=== PATIENT | male | born 1970 | race Caucasian/White ===

== ENCOUNTER 2021-05-09 22:36 | Emergency (ER) | payer OTHER, MEDICAID ==
[~2021-05-09] VITALS: Ht 185.4 cm; Wt 72.6 kg
[~2021-05-09 22:36] MED LIST: ALPR2TAB2 PO; ASPI81CH45; BUPRTAB3 PO; LEVEMIR SC; QUET100T38 PO
[2021-05-10 03:15] VITALS: BP 170/76
[2021-05-10] MEDS ORDERED: SODIUM CHLORIDE 0.9% 1,000 ML IV ONE (06:00)
[2021-05-10 07:08] LABS: Basophils # (auto) 0 10 ^3/uL (0-0.2); Basophils % (auto) 0.7 % (0.0-2.0); Eosinophils # (auto) 0.1 10 ^3/uL (0-0.8); Hematocrit 39.6 % (41.0-53.0); Hemoglobin 13.1 g/dL (13.5-17.5); Lymphocytes # (auto) 2.2 10 ^3/uL (0.4-5.4); Lymphocytes % (auto) 30.4 % (10.0-50.0); Mean Corpuscular Hemoglobin 28.9 pg (28.0-32.0); Mean Corpuscular Volume 87.5 fL (80.0-100.0); Monocytes # (auto) 0.8 10 ^3/uL (0-1.3); Monocytes % (auto) 10.9 % (0.0-12.0); Nucleated Red Blood Cells % 0.2 %; Red Blood Cells 4.52 10^6/uL (4.5-5.90); Red Cell Distribution Width 13.3 % (11.8-14.3); White Blood Cell 7.1 10^3/uL (4.4-10.8)
[2021-05-10 07:20] LABS: Albumin 3.8 g/dL (3.4-5.0); BUN/Creatinine Ratio 26.8; Calcium 8.8 mg/dL (8.5-10.1); Magnesium 2.1 mg/dL (1.6-2.6); Potassium 4.4 mmol/L (3.5-5.1)
[2021-05-10 07:23] LABS: Bilirubin, Total 0.4 mg/dL (0.2-1.0); Total Protein 7.1 g/dL (6.4-8.2)
== END 2021-05-10 10:07 | disposition left against medical advice (07) ==
LOC: EDBD 22:36 → ER 22:37
DX: E11.65 Type 2 diabetes mellitus with hyperglycemia (principal); F15.10 Other stimulant abuse, uncomplicated; F19.10 Other psychoactive substance abuse, uncomplicated; F17.210 Nicotine dependence, cigarettes, uncomplicated; F12.10 Cannabis abuse, uncomplicated; F14.10 Cocaine abuse, uncomplicated; I10 Essential (primary) hypertension
CPT/HCPCS: 36415; 80053; 80320; 82010; 83605; 83735; 85025; 96360; 99283; J7030

== ENCOUNTER 2021-05-13 19:56 | Emergency (ER) | payer OTHER, MEDICAID ==
[~2021-05-13] VITALS: Ht 185.4 cm; Wt 74.8 kg
[2021-05-13] MEDS ORDERED: SODIUM CHLORIDE 0.9% 1,000 ML IV ONE ×2 (20:45→23:15)
[2021-05-13 21:30] LABS: Basophils # (auto) 0 10 ^3/uL (0-0.2); Basophils % (auto) 0.4 % (0.0-2.0); Eosinophils # (auto) 0.1 10 ^3/uL (0-0.8); Eosinophils % (auto) 0.6 % (0.0-7.0); Hematocrit 37.6 % (41.0-53.0); Hemoglobin 12.5 g/dL (13.5-17.5); Lymphocytes # (auto) 1.5 10 ^3/uL (0.4-5.4); Lymphocytes % (auto) 15.6 % (10.0-50.0); Mean Corpuscular Hemoglobin 28.7 pg (28.0-32.0); Mean Corpuscular Hgb Conc. 33.2 g/dL (32.0-36.0); Mean Corpuscular Volume 86.5 fL (80.0-100.0); Monocytes # (auto) 0.7 10 ^3/uL (0-1.3); Monocytes % (auto) 7.7 % (0.0-12.0); Neutrophils # (auto) 7.2 10 ^3/uL (1.6-8.6); Neutrophils % (auto) 75.7 % (37.0-80.0); Red Blood Cells 4.35 10^6/uL (4.5-5.90); Red Cell Distribution Width 13.3 % (11.8-14.3); White Blood Cell 9.5 10^3/uL (4.4-10.8)
[2021-05-13 21:46] LABS: Albumin 3.5 g/dL (3.4-5.0); Calcium 8.2 mg/dL (8.5-10.1); Magnesium 2.8 mg/dL (1.6-2.6); Potassium 4.3 mmol/L (3.5-5.1)
[2021-05-13 21:50] LABS: BUN/Creatinine Ratio 17.4; Bilirubin, Total 0.2 mg/dL (0.2-1.0); Phosphorus 3.3 mg/dL (2.5-4.90); Total Protein 7.1 g/dL (6.4-8.2)
[2021-05-13] MEDS ORDERED: InsuLIN REG 1unit/0.01ml Soln (100units/ml) IV ONE (22:15)
[2021-05-14] MEDS ORDERED: DEXTROSE 50% SYRINGE 50 ML IV ONE (00:58)
[2021-05-14] MEDS ORDERED: DEXTROSE (50%) 50ML SYRG IV ONE (01:15)
[2021-05-14 02:14] VITALS: BP 109/62
[2021-05-14] MEDS ORDERED: INSU1INJ19 SC (03:02)
== END 2021-05-14 03:20 | disposition home or self-care (01) ==
LOC: ER 19:56
DX: E11.65 Type 2 diabetes mellitus with hyperglycemia (principal); R44.3 Hallucinations, unspecified; I10 Essential (primary) hypertension; F17.210 Nicotine dependence, cigarettes, uncomplicated; F12.10 Cannabis abuse, uncomplicated; F15.10 Other stimulant abuse, uncomplicated; F14.10 Cocaine abuse, uncomplicated
CPT/HCPCS: 36415; 80053; 82010; 82962; 83605; 83735; 84100; 85025; 96361; 96374; 96375; 99285; J7030; J7042

== ENCOUNTER 2021-05-15 11:46 | Emergency (ER) | payer OTHER, MEDICAID ==
[~2021-05-15] VITALS: Ht 185.4 cm; Wt 80.3 kg
[~2021-05-15 11:46] MED LIST changes: +INSU1INJ19 SC
[2021-05-15 12:42] LABS: Urine Bacteria NONE SEEN /hpf (None Seen); Urine Blood TRACE /uL (Negative); Urine Specific Gravity 1.024 (1.001-1.035); Urine WBC 263 /hpf (0 - 3); Urine WBC Clumps PRESENT /hpf (None Seen)
[2021-05-15 13:15] LABS: Alcohol, Urine < 3.0 mg/dL (0-10); Amphetamine Screen, Urine POSITIVE (NEGATIVE); Barbiturate Scree,Urine NEGATIVE (NEGATIVE); Benzodiazephine Screen, Urine NEGATIVE (NEGATIVE); Cannabinoid Screen, Urine NEGATIVE (NEGATIVE); Cocaine Screen, Urine NEGATIVE (NEGATIVE); Phencyclidine Screen, Urine NEGATIVE (NEGATIVE)
[2021-05-15 13:21] LABS: Opiate Scree,Urine NEGATIVE (NEGATIVE)
[2021-05-15 21:32] LABS: Basophils # (auto) 0 10 ^3/uL (0-0.2); Basophils % (auto) 0.4 % (0.0-2.0); Eosinophils # (auto) 0.1 10 ^3/uL (0-0.8); Eosinophils % (auto) 1.6 % (0.0-7.0); Hematocrit 40.7 % (41.0-53.0); Hemoglobin 13.4 g/dL (13.5-17.5); Lymphocytes # (auto) 1.2 10 ^3/uL (0.4-5.4); Lymphocytes % (auto) 18.7 % (10.0-50.0); Mean Corpuscular Hemoglobin 29.5 pg (28.0-32.0); Mean Corpuscular Volume 89.3 fL (80.0-100.0); Monocytes # (auto) 0.5 10 ^3/uL (0-1.3); Monocytes % (auto) 8.5 % (0.0-12.0); Neutrophils # (auto) 4.6 10 ^3/uL (1.6-8.6); Neutrophils % (auto) 70.8 % (37.0-80.0); Nucleated Red Blood Cells % 0.1 %; Red Blood Cells 4.56 10^6/uL (4.5-5.90); Red Cell Distribution Width 13.5 % (11.8-14.3); White Blood Cell 6.5 10^3/uL (4.4-10.8)
[2021-05-15 21:54] LABS: Calcium 9.1 mg/dL (8.5-10.1); Potassium 5.1 mmol/L (3.5-5.1)
[2021-05-15 22:00] LABS: BUN/Creatinine Ratio 28.6
[2021-05-16] MEDS ORDERED: InsuLIN REG 1unit/0.01ml Soln (100units/ml) IV ONE ×2 (01:00→05:45)
[2021-05-16] MEDS ORDERED: SODIUM CHLORIDE 0.9% 1,000 ML IV ONE ×2 (01:00→02:45)
[2021-05-16 01:54] LABS: Magnesium 2.1 mg/dL (1.6-2.6); Phosphorus 3.5 mg/dL (2.5-4.90)
[2021-05-16] MEDS ORDERED: cefTRIAXone 1GM/50ML D5W 50 ML IV ONE (02:45)
[2021-05-16] MEDS ORDERED: INSULIN LANTUS (GLARGINE) 1 /0.01ml (100units/ml) SC ONE (05:00)
[2021-05-16] MEDS ORDERED: InsuLIN R (HUMAN) 100 UNITS in SODIUM CHL 0.9% 99 ML IV SCH ×2 (05:00→05:45)
[2021-05-16] MEDS ORDERED: DEXTROSE (50%) 50ML SYRG IV PRN ×3 (05:00→05:45)
[2021-05-16] MEDS ORDERED: ACETAMINOPHEN 325 MG TAB PO PRN (05:15)
[2021-05-16] MEDS ORDERED: ONDANSETRON HCL 4 MG/2 ML VIAL IV PRN (05:15)
[2021-05-16] MEDS ORDERED: HYDROcodone-ACET 5/325MG TAB PO PRN (05:15)
[2021-05-16] MEDS ORDERED: SODIUM CHLORIDE 0.9% 1,000 ML IV SCH (05:15)
[2021-05-16] MEDS ORDERED: DOCUSATE SOD 100 MG CAP PO PRN (05:15)
[2021-05-16] MEDS: ACCU-CHEK COMFORT CURVE STRIP VI SCH ×6 (05:56→11:39)
[2021-05-16] MEDS ORDERED: ACCU-CHEK COMFORT CURVE STRIP VI SCH (06:00)
[2021-05-16] MEDS ORDERED: INSULIN LANTUS (GLARGINE) 1 /0.01ml (100units/ml) SC SCH (07:00)
[2021-05-16] MEDS ORDERED: InsuLIN REG 1unit/0.01ml Soln (100units/ml) SC SCH (08:00)
[2021-05-16 08:07] LABS: Basophils # (auto) 0.1 10 ^3/uL (0-0.2); Basophils % (auto) 1.1 % (0.0-2.0); Eosinophils # (auto) 0.2 10 ^3/uL (0-0.8); Eosinophils % (auto) 3.4 % (0.0-7.0); Hematocrit 38.6 % (41.0-53.0); Hemoglobin 12.9 g/dL (13.5-17.5); Lymphocytes # (auto) 1.5 10 ^3/uL (0.4-5.4); Lymphocytes % (auto) 27.3 % (10.0-50.0); Mean Corpuscular Hemoglobin 29.3 pg (28.0-32.0); Mean Corpuscular Hgb Conc. 33.5 g/dL (32.0-36.0); Mean Corpuscular Volume 87.4 fL (80.0-100.0); Monocytes # (auto) 0.5 10 ^3/uL (0-1.3); Monocytes % (auto) 8.5 % (0.0-12.0); Neutrophils # (auto) 3.2 10 ^3/uL (1.6-8.6); Neutrophils % (auto) 59.7 % (37.0-80.0); Red Blood Cells 4.42 10^6/uL (4.5-5.90); Red Cell Distribution Width 12.8 % (11.8-14.3); White Blood Cell 5.4 10^3/uL (4.4-10.8)
[2021-05-16 08:21] LABS: Albumin 3.1 g/dL (3.4-5.0); Calcium 8.3 mg/dL (8.5-10.1); Potassium 3.9 mmol/L (3.5-5.1)
[2021-05-16 08:26] LABS: BUN/Creatinine Ratio 28.9; Bilirubin, Total 0.3 mg/dL (0.2-1.0); Total Protein 6.8 g/dL (6.4-8.2)
[2021-05-16] MEDS ORDERED: FAMOTIDINE (10MG/ML) 2ML VL IV SCH (10:00)
[2021-05-16] MEDS ORDERED: ENOXAPARIN SOD 40 MG/0.4 ML SYRINGE SC SCH (10:00)
[2021-05-16 11:36] VITALS: BP 134/79
[2021-05-16] MEDS ORDERED: cefTRIAXone 1GM/50ML D5W 50 ML IV SCH (21:00)
[2021-05-17] MEDS ORDERED: INSULIN LANTUS (GLARGINE) 1 /0.01ml (100units/ml) SC SCH (10:00)
== END 2021-05-16 11:54 | disposition short-term general hospital (02) ==
LOC: ER 11:46
DX: E11.65 Type 2 diabetes mellitus with hyperglycemia (principal); I73.89 Other specified peripheral vascular diseases; N39.0 Urinary tract infection, site not specified; F17.210 Nicotine dependence, cigarettes, uncomplicated; F12.10 Cannabis abuse, uncomplicated; F15.10 Other stimulant abuse, uncomplicated; F14.10 Cocaine abuse, uncomplicated; Z59.00 Homelessness unspecified
CPT/HCPCS: 36415; 80048; 80053; 80307; 81001; 82010; 82962; 83036; 83605; 83735; 84100; 85025; 87086; 87426; 96361; 96365; 96372; 96375; 96376; 99285; J0696; J1650; J1815; J3490; J7030

== ENCOUNTER 2021-06-25 16:24 | Emergency (ER) | payer MEDICAID, OTHER ==
[~2021-06-25] VITALS: Ht 182.9 cm; Wt 81.6 kg
[2021-06-25] MEDS ORDERED: SODIUM CHLORIDE 0.9% 1,000 ML IV ONE (16:45)
[2021-06-25] MEDS ORDERED: PERCOT PO (17:16)
[2021-06-25] MEDS ORDERED: DEXTROSE 10% 1,000 ML IV ONE (18:01)
[2021-06-25] MEDS ORDERED: DEXTROSE 10% 1,000 ML IV SCH (18:15)
[2021-06-25 18:45] LABS: Basophils # (auto) 0 10 ^3/uL (0-0.2); Basophils % (auto) 0.4 % (0.0-2.0); Eosinophils # (auto) 0.1 10 ^3/uL (0-0.8); Eosinophils % (auto) 0.4 % (0.0-7.0); Hematocrit 40.9 % (41.0-53.0); Hemoglobin 13.7 g/dL (13.5-17.5); Lymphocytes # (auto) 1.3 10 ^3/uL (0.4-5.4); Lymphocytes % (auto) 10.5 % (10.0-50.0); Mean Corpuscular Hemoglobin 28.7 pg (28.0-32.0); Mean Corpuscular Hgb Conc. 33.5 g/dL (32.0-36.0); Mean Corpuscular Volume 85.8 fL (80.0-100.0); Monocytes # (auto) 1.4 10 ^3/uL (0-1.3); Monocytes % (auto) 11.8 % (0.0-12.0); Neutrophils # (auto) 9.4 10 ^3/uL (1.6-8.6); Neutrophils % (auto) 76.9 % (37.0-80.0); Nucleated Red Blood Cells % 0.1 %; Red Blood Cells 4.77 10^6/uL (4.5-5.90); Red Cell Distribution Width 14.3 % (11.8-14.3); White Blood Cell 12.2 10^3/uL (4.4-10.8)
[2021-06-25 19:01] LABS: Albumin 3.6 g/dL (3.4-5.0); Calcium 9.1 mg/dL (8.5-10.1); Potassium 4.2 mmol/L (3.5-5.1)
[2021-06-25 19:11] LABS: BUN/Creatinine Ratio 33.7; Bilirubin, Total 0.4 mg/dL (0.2-1.0); Total Protein 7.7 g/dL (6.4-8.2)
[2021-06-25 21:33] LABS: Urine Bacteria FEW /hpf (None Seen); Urine Blood Negative /uL (Negative); Urine Hyaline Cast FEW /lpf (0 - 2); Urine Specific Gravity 1.023 (1.001-1.035); Urine WBC 2 /hpf (0 - 3)
[2021-06-25 22:17] LABS: Alcohol, Urine < 3.0 mg/dL (0-10); Amphetamine Screen, Urine POSITIVE (NEGATIVE); Barbiturate Scree,Urine NEGATIVE (NEGATIVE); Benzodiazephine Screen, Urine NEGATIVE (NEGATIVE); Cannabinoid Screen, Urine NEGATIVE (NEGATIVE); Cocaine Screen, Urine NEGATIVE (NEGATIVE); Opiate Scree,Urine NEGATIVE (NEGATIVE); Phencyclidine Screen, Urine NEGATIVE (NEGATIVE)
[2021-06-26] MEDS ORDERED: ASPirin 325 MG TAB PO ONE (03:15)
[2021-06-26 04:22] VITALS: BP 130/75
== END 2021-06-26 08:45 | disposition short-term general hospital (02) ==
LOC: ER 16:24 → EDBD 16:24 → ER 06-26 08:45
DX: G93.41 Metabolic encephalopathy (principal); F25.9 Schizoaffective disorder, unspecified; E11.649 Type 2 diabetes mellitus with hypoglycemia without coma; I10 Essential (primary) hypertension; F17.210 Nicotine dependence, cigarettes, uncomplicated; R41.82 Altered mental status, unspecified; F12.10 Cannabis abuse, uncomplicated; F15.10 Other stimulant abuse, uncomplicated; F14.10 Cocaine abuse, uncomplicated; Z20.822 Contact with and (suspected) exposure to COVID-19
CPT/HCPCS: 36415; 70450; 71045; 80053; 80307; 81001; 82962; 83036; 84484; 85025; 87426; 93005; 96360; 96361

== ENCOUNTER 2021-07-05 15:53 | Inpatient (IN) | payer OTHER, MEDICAID ==
[~2021-07-05] VITALS: Ht 182.9 cm; Wt 80.7 kg
[2021-07-05] MEDS ORDERED: DEXTROSE 50% SYRINGE 50 ML IV ONE ×3 (16:15→20:25)
[2021-07-05] MEDS ORDERED: DEXTROSE (50%) 50ML SYRG IV ONE ×3 (17:00→20:45)
[2021-07-05 17:17] LABS: Basophils # (auto) 0 10 ^3/uL (0-0.2); Basophils % (auto) 0.2 % (0.0-2.0); Eosinophils # (auto) 0.1 10 ^3/uL (0-0.8); Eosinophils % (auto) 0.8 % (0.0-7.0); Hemoglobin 11.4 g/dL (13.5-17.5); Lymphocytes # (auto) 0.7 10 ^3/uL (0.4-5.4); Lymphocytes % (auto) 8.3 % (10.0-50.0); Mean Corpuscular Hemoglobin 28.6 pg (28.0-32.0); Mean Corpuscular Hgb Conc. 33.6 g/dL (32.0-36.0); Mean Corpuscular Volume 85.2 fL (80.0-100.0); Monocytes # (auto) 0.6 10 ^3/uL (0-1.3); Monocytes % (auto) 6.9 % (0.0-12.0); Neutrophils # (auto) 7.4 10 ^3/uL (1.6-8.6); Neutrophils % (auto) 83.8 % (37.0-80.0); Nucleated Red Blood Cells % 0.2 %; Red Blood Cells 3.99 10^6/uL (4.5-5.90); Red Cell Distribution Width 13.8 % (11.8-14.3); White Blood Cell 8.8 10^3/uL (4.4-10.8)
[2021-07-05 17:36] LABS: Acetaminophen < 2.0 ug/mL (10-30); Albumin 2.6 g/dL (3.4-5.0); BUN/Creatinine Ratio 31.3; Calcium 8.2 mg/dL (8.5-10.1); Potassium 3.1 mmol/L (3.5-5.1); Salicylate < 1.7 mg/dL (2.8-20.0)
[2021-07-05 17:39] LABS: Bilirubin, Total 0.2 mg/dL (0.2-1.0); Total Protein 6.3 g/dL (6.4-8.2)
[2021-07-05] MEDS ORDERED: D5W/SOD CHL 0.45%/KCL 20MEQ 1,000 ML IV ONE ×2 (18:45→19:00)
[2021-07-05] MEDS ORDERED: cefTRIAXone 1GM/50ML D5W 50 ML IV ONE (20:30)
[2021-07-05] MEDS ORDERED: DEXTROSE 10% 1,000 ML IV ONE (21:15)
[2021-07-05] MEDS ORDERED: DEXTROSE (50%) 50ML SYRG IV PRN (21:30)
[2021-07-05] MEDS ORDERED: AZITHROMYCIN 500MG/ 250ML 250 ML IV ONE (21:30)
[2021-07-05] MEDS ORDERED: ONDANSETRON HCL 4 MG/2 ML VIAL IV PRN (21:30)
[2021-07-05] MEDS ORDERED: NITROGLYCERIN 0.4 MG SL TAB SL PRN (21:30)
[2021-07-05] MEDS ORDERED: MORPHINE SULFATE INJECTION 2 MG/ML SYRG IV PRN (21:30)
[2021-07-05] MEDS: GABAPENTIN 300 MG CAP PO SCH (22:00)
[2021-07-05] MEDS: risperiDONE 1 MG TAB PO SCH (22:00)
[2021-07-05] MEDS: DEXTROSE 10% 1,000 ML IV SCH (22:01)
[2021-07-06] MEDS: InsuLIN REG 1unit/0.01ml Soln (100units/ml) SC SCH ×6 (04:00→20:25)
[2021-07-06] MEDS: ACCU-CHEK COMFORT CURVE STRIP VI SCH ×6 (04:24→20:24)
[2021-07-06] MEDS: GABAPENTIN 300 MG CAP PO SCH ×3 (06:00→22:40)
[2021-07-06] MEDS: buPROPion HCL 75 MG TAB PO SCH ×2 (08:00→19:00)
[2021-07-06] MEDS: AZITHROMYCIN 500MG/ 250ML 250 ML IV SCH (10:14)
[2021-07-06] MEDS: DEXTROSE 10% 1,000 ML IV SCH (10:39)
[2021-07-06 12:03] LABS: BUN/Creatinine Ratio 16.4; Calcium 8.4 mg/dL (8.5-10.1); Potassium 3.8 mmol/L (3.5-5.1)
[2021-07-06 12:08] LABS: Basophils # (auto) 0 10 ^3/uL (0-0.2); Basophils % (auto) 0.1 % (0.0-2.0); Eosinophils # (auto) 0.1 10 ^3/uL (0-0.8); Hematocrit 33.5 % (41.0-53.0); Hemoglobin 11.1 g/dL (13.5-17.5); Lymphocytes # (auto) 1.1 10 ^3/uL (0.4-5.4); Lymphocytes % (auto) 11.6 % (10.0-50.0); Mean Corpuscular Hgb Conc. 33.1 g/dL (32.0-36.0); Mean Corpuscular Volume 84.6 fL (80.0-100.0); Monocytes # (auto) 0.6 10 ^3/uL (0-1.3); Monocytes % (auto) 6.4 % (0.0-12.0); Neutrophils % (auto) 80.9 % (37.0-80.0); Red Blood Cells 3.96 10^6/uL (4.5-5.90); Red Cell Distribution Width 13.5 % (11.8-14.3); White Blood Cell 9.8 10^3/uL (4.4-10.8)
[2021-07-06 13:00] VITALS: BP 114/64
[2021-07-06 14:45] LABS: Alcohol, Urine < 3.0 mg/dL (0-10); Amphetamine Screen, Urine POSITIVE (NEGATIVE); Barbiturate Scree,Urine NEGATIVE (NEGATIVE); Benzodiazephine Screen, Urine NEGATIVE (NEGATIVE); Cannabinoid Screen, Urine NEGATIVE (NEGATIVE); Cocaine Screen, Urine NEGATIVE (NEGATIVE)
[2021-07-06 14:53] LABS: Opiate Scree,Urine NEGATIVE (NEGATIVE); Phencyclidine Screen, Urine NEGATIVE (NEGATIVE)
[2021-07-06 15:00] LABS: Urine Bacteria NONE SEEN /hpf (None Seen); Urine Blood Negative /uL (Negative); Urine Hyaline Cast FEW /lpf (0 - 2); Urine Specific Gravity 1.016 (1.001-1.035); Urine WBC 1 /hpf (0 - 3)
[2021-07-06] MEDS ORDERED: ATORVASTATIN 20 MG TAB PO ONE (15:30)
[2021-07-06] MEDS: ACETAMINOPHEN 325 MG TAB PO PRN (17:22)
[2021-07-06 20:00] VITALS: BP 123/64
[2021-07-06] MEDS: risperiDONE 1 MG TAB PO SCH (22:40)
[2021-07-07] MEDS: InsuLIN REG 1unit/0.01ml Soln (100units/ml) SC SCH ×5 (04:00→22:00)
[2021-07-07] MEDS: ACCU-CHEK COMFORT CURVE STRIP VI SCH ×5 (05:15→22:00)
[2021-07-07] MEDS: GABAPENTIN 300 MG CAP PO SCH ×3 (06:01→21:40)
[2021-07-07] MEDS: buPROPion HCL 75 MG TAB PO SCH ×2 (07:00→19:00)
[2021-07-07 08:00] VITALS: BP 145/94
[2021-07-07 09:00] VITALS: BP 145/94
[2021-07-07] MEDS ORDERED: DEXTROSE (50%) 50ML SYRG IV PRN (09:30)
[2021-07-07] MEDS: ASPirin-EC 81 mg tab PO SCH (09:50)
[2021-07-07] MEDS: cefTRIAXone 1GM/50ML D5W 50 ML IV SCH (09:52)
[2021-07-07 12:20] LABS: Cholesterol 108 mg/dL (< 200); Sodium 131 mmol/L (136-145)
[2021-07-07 12:23] LABS: HDL Cholesterol 37 mg/dL (40-59); LDL Cholesterol 52 mg/dL (< 100); Triglycerides 100 mg/dL (< 150)
[2021-07-07 13:00] VITALS: BP 158/102
[2021-07-07] MEDS ORDERED: INSULIN LANTUS (GLARGINE) 1 /0.01ml (100units/ml) SC ONE (13:45)
[2021-07-07] MEDS: AZITHROMYCIN 500MG/ 250ML 250 ML IV SCH (13:57)
[2021-07-07] MEDS: ALPRAZolam 0.5 MG TAB PO SCH ×2 (15:05→21:43)
[2021-07-07] MEDS ORDERED: LABETALOL HCL 5 MG/ML 4ML SYRINGE IV PRN (16:00)
[2021-07-07 16:56] VITALS: BP 147/90
[2021-07-07 20:00] VITALS: BP 147/79
[2021-07-07] MEDS: risperiDONE 1 MG TAB PO SCH (21:40)
[2021-07-07 22:00] VITALS: BP 147/79
[2021-07-08 05:00] VITALS: BP 111/65
[2021-07-08] MEDS: GABAPENTIN 300 MG CAP PO SCH ×3 (06:00→22:00)
[2021-07-08] MEDS: ALPRAZolam 0.5 MG TAB PO SCH ×3 (06:00→22:00)
[2021-07-08] MEDS: InsuLIN REG 1unit/0.01ml Soln (100units/ml) SC SCH ×4 (06:54→22:00)
[2021-07-08] MEDS: ACCU-CHEK COMFORT CURVE STRIP VI SCH ×4 (06:58→22:00)
[2021-07-08] MEDS: buPROPion HCL 75 MG TAB PO SCH ×2 (07:28→18:01)
[2021-07-08 08:00] VITALS: BP 120/73
[2021-07-08 08:43] VITALS: BP 120/73
[2021-07-08] MEDS ORDERED: INSULIN LANTUS (GLARGINE) 1 /0.01ml (100units/ml) SC SCH (10:00)
[2021-07-08] MEDS: AZITHROMYCIN 500MG/ 250ML 250 ML IV SCH (11:01)
[2021-07-08] MEDS: ASPirin-EC 81 mg tab PO SCH (11:02)
[2021-07-08] MEDS: cefTRIAXone 1GM/50ML D5W 50 ML IV SCH (12:03)
[2021-07-08 13:00] VITALS: BP 155/87
[2021-07-08 17:00] VITALS: BP 137/73
[2021-07-08 20:00] VITALS: BP 133/69
[2021-07-08] MEDS: risperiDONE 1 MG TAB PO SCH (22:00)
[2021-07-09] MEDS: GABAPENTIN 300 MG CAP PO SCH ×3 (06:15→22:00)
[2021-07-09] MEDS: ALPRAZolam 0.5 MG TAB PO SCH ×3 (06:15→22:00)
[2021-07-09] MEDS: InsuLIN REG 1unit/0.01ml Soln (100units/ml) SC SCH ×4 (06:21→22:00)
[2021-07-09] MEDS: ACCU-CHEK COMFORT CURVE STRIP VI SCH ×4 (06:22→23:29)
[2021-07-09] MEDS: buPROPion HCL 75 MG TAB PO SCH ×2 (06:22→18:32)
[2021-07-09 06:53] LABS: Potassium 3.7 mmol/L (3.5-5.1)
[2021-07-09 06:55] LABS: BUN/Creatinine Ratio 18.5
[2021-07-09 09:00] VITALS: BP 108/61
[2021-07-09] MEDS: cefTRIAXone 1GM/50ML D5W 50 ML IV SCH (10:20)
[2021-07-09] MEDS: ASPirin-EC 81 mg tab PO SCH (10:21)
[2021-07-09] MEDS: INSULIN LANTUS (GLARGINE) 1 /0.01ml (100units/ml) SC SCH (10:26)
[2021-07-09] MEDS: AZITHROMYCIN 500MG/ 250ML 250 ML IV SCH (10:26)
[2021-07-09 13:00] VITALS: BP 113/67
[2021-07-09] MEDS: ACETAMINOPHEN 325 MG TAB PO PRN (15:55)
[2021-07-09 17:00] VITALS: BP 154/93
[2021-07-09] MEDS ORDERED: InsuLIN REG 1unit/0.01ml Soln (100units/ml) SC ONE (19:15)
[2021-07-09 20:00] VITALS: BP 120/86
[2021-07-09 22:00] VITALS: BP 163/87
[2021-07-09] MEDS ORDERED: INSULIN LANTUS (GLARGINE) 1 /0.01ml (100units/ml) SC SCH (22:00)
[2021-07-09] MEDS: risperiDONE 1 MG TAB PO SCH (22:00)
[2021-07-10 05:00] VITALS: BP 105/65
[2021-07-10] MEDS: GABAPENTIN 300 MG CAP PO SCH ×3 (06:00→21:30)
[2021-07-10] MEDS: ALPRAZolam 0.5 MG TAB PO SCH ×3 (06:00→21:30)
[2021-07-10] MEDS: buPROPion HCL 75 MG TAB PO SCH ×2 (06:38→19:22)
[2021-07-10] MEDS: ACCU-CHEK COMFORT CURVE STRIP VI SCH ×4 (06:39→21:30)
[2021-07-10] MEDS: InsuLIN REG 1unit/0.01ml Soln (100units/ml) SC SCH ×4 (06:44→21:24)
[2021-07-10 09:00] VITALS: BP 101/58
[2021-07-10] MEDS: ASPirin-EC 81 mg tab PO SCH (09:43)
[2021-07-10] MEDS: ACETAMINOPHEN 325 MG TAB PO PRN (09:44)
[2021-07-10] MEDS: AZITHROMYCIN 500MG/ 250ML 250 ML IV SCH (09:44)
[2021-07-10] MEDS: cefTRIAXone 1GM/50ML D5W 50 ML IV SCH (09:44)
[2021-07-10] MEDS: INSULIN LANTUS (GLARGINE) 1 /0.01ml (100units/ml) SC SCH ×2 (10:03→21:25)
[2021-07-10 13:00] VITALS: BP 142/90
[2021-07-10 16:49] VITALS: BP 135/110
[2021-07-10] MEDS ORDERED: InsuLIN REG 1unit/0.01ml Soln (100units/ml) SC ONE (18:00)
[2021-07-10] MEDS ORDERED: LORazepam 2MG/ML-1ML VIAL IV ONE (19:00)
[2021-07-10 20:15] LABS: Albumin 2.5 g/dL (3.4-5.0); Calcium 8.3 mg/dL (8.5-10.1); Potassium 4.2 mmol/L (3.5-5.1)
[2021-07-10 20:26] LABS: BUN/Creatinine Ratio 19.8; Bilirubin, Total 0.2 mg/dL (0.2-1.0); Total Protein 6.1 g/dL (6.4-8.2)
[2021-07-10] MEDS: risperiDONE 1 MG TAB PO SCH (21:30)
[2021-07-10 22:00] VITALS: BP 128/19
[2021-07-11 05:00] VITALS: BP 106/60
[2021-07-11] MEDS: ACCU-CHEK COMFORT CURVE STRIP VI SCH ×4 (05:10→21:27)
[2021-07-11] MEDS: GABAPENTIN 300 MG CAP PO SCH ×3 (06:00→21:24)
[2021-07-11] MEDS: ALPRAZolam 0.5 MG TAB PO SCH ×3 (06:00→21:24)
[2021-07-11] MEDS: buPROPion HCL 75 MG TAB PO SCH ×2 (06:49→18:23)
[2021-07-11] MEDS: InsuLIN REG 1unit/0.01ml Soln (100units/ml) SC SCH ×4 (06:50→21:25)
[2021-07-11] MEDS: cefTRIAXone 1GM/50ML D5W 50 ML IV SCH (09:16)
[2021-07-11] MEDS: ASPirin-EC 81 mg tab PO SCH (10:10)
[2021-07-11] MEDS: AZITHROMYCIN 500MG/ 250ML 250 ML IV SCH (10:10)
[2021-07-11] MEDS: INSULIN LANTUS (GLARGINE) 1 /0.01ml (100units/ml) SC SCH ×2 (10:11→21:26)
[2021-07-11 13:00] VITALS: BP 142/85
[2021-07-11 17:00] VITALS: BP_SYST 142; BP_SYST 149; BP_DIAS 85; BP_DIAS 88
[2021-07-11] MEDS: risperiDONE 1 MG TAB PO SCH (21:24)
[2021-07-11 22:00] VITALS: BP 150/88
[2021-07-12] MEDS ORDERED: HALOPERIDOL LACTATE 5 MG/ML INJ VIAL IM PRN (02:45)
[2021-07-12] MEDS: ALPRAZolam 0.5 MG TAB PO SCH (06:00)
[2021-07-12] MEDS: GABAPENTIN 300 MG CAP PO SCH (06:00)
[2021-07-12] MEDS: cefTRIAXone 1GM/50ML D5W 50 ML IV SCH ×2 (06:36→08:22)
[2021-07-12] MEDS: InsuLIN REG 1unit/0.01ml Soln (100units/ml) SC SCH ×2 (07:00→11:30)
[2021-07-12] MEDS: buPROPion HCL 75 MG TAB PO SCH (07:00)
[2021-07-12] MEDS: ACCU-CHEK COMFORT CURVE STRIP VI SCH ×2 (07:00→11:30)
[2021-07-12 08:00] VITALS: BP 125/64
[2021-07-12] MEDS: ASPirin-EC 81 mg tab PO SCH (08:23)
[2021-07-12] MEDS: AZITHROMYCIN 500MG/ 250ML 250 ML IV SCH (08:23)
[2021-07-12] MEDS: INSULIN LANTUS (GLARGINE) 1 /0.01ml (100units/ml) SC SCH (08:23)
[2021-07-12 09:00] VITALS: BP 143/80
[2021-07-12] MEDS: HYDROcodone-ACET 5/325MG TAB PO PRN ×2 (10:45→11:38)
[2021-07-12] MEDS ORDERED: LEVEMIR SC (12:43)
[2021-07-12] MEDS ORDERED: INSU100I49 SC (12:43)
[2021-07-12] MEDS ORDERED: AMIT1TAB35 PO (12:43)
[2021-07-12 13:00] VITALS: BP 139/94
== END 2021-07-12 14:15 | disposition left against medical advice (07) | DRG 91 ==
LOC: ER 15:53 → EDBD 15:53 → TELE 21:25 → TELE-CENTR 07-06 14:10 → CENTRAL 07-09 10:44
PROVIDERS: ADMIT Nurse Practitioner; ATTEND Family Medicine
DX: G92.8 Other toxic encephalopathy (principal); J18.9 Pneumonia, unspecified organism; J96.00 Acute respiratory failure, unspecified whether with hypoxia or hypercapnia; E43 Unspecified severe protein-calorie malnutrition; I21.A1 Myocardial infarction type 2; E87.1 Hypo-osmolality and hyponatremia; E86.0 Dehydration; F20.9 Schizophrenia, unspecified; I10 Essential (primary) hypertension; E87.6 Hypokalemia; S80.211A Abrasion, right knee, initial encounter; X58.XXXA Exposure to other specified factors, initial encounter; E11.65 Type 2 diabetes mellitus with hyperglycemia; Z20.822 Contact with and (suspected) exposure to COVID-19; Z53.29 Procedure and treatment not carried out because of patient's decision for other reasons; F17.210 Nicotine dependence, cigarettes, uncomplicated; E78.5 Hyperlipidemia, unspecified; Z79.4 Long term (current) use of insulin; Z68.21 Body mass index [BMI] 21.0-21.9, adult; Y93.89 Activity, other specified; Y92.89 Other specified places as the place of occurrence of the external cause; Y99.8 Other external cause status; Z59.00 Homelessness unspecified
CPT/HCPCS: 36415; 70450; 71045; 80048; 80053; 80061; 80307; 80329; 81001; 82962; 83880; 84295; 84443; 84484; 85025; 87081; 87426; 93306; 96365; 96367; 96375; 96376; 97163; G0378; J0696; J1815

== ENCOUNTER 2021-07-12 15:23 | Emergency (ER) | payer OTHER, MEDICAID ==
[~2021-07-12] VITALS: Ht 175.3 cm; Wt 81.6 kg
[~2021-07-12 15:23] MED LIST changes: +AMIT1TAB35 PO; +INSU100I49 SC
[2021-07-12 15:28] VITALS: BP 153/72
== END 2021-07-13 00:24 | disposition left against medical advice (07) ==
LOC: ER 15:23 → EDBD 15:23 → ER 07-13 00:24
DX: F25.9 Schizoaffective disorder, unspecified (principal); E11.9 Type 2 diabetes mellitus without complications; I10 Essential (primary) hypertension; F17.210 Nicotine dependence, cigarettes, uncomplicated; F12.10 Cannabis abuse, uncomplicated; F15.10 Other stimulant abuse, uncomplicated; F14.10 Cocaine abuse, uncomplicated
CPT/HCPCS: 82962

== ENCOUNTER → 2022-02-10 | Emergency (ER) | payer OTHER, MEDICAID ==
[~2022-02-10] MED LIST changes: -ALPR2TAB2 PO; -ASPI81CH45; -BUPRTAB3 PO; -INSU1INJ19 SC; -QUET100T38 PO
[2022-02-10 20:10] VITALS: BP 138/64
[2022-02-10 20:44] LABS: Basophils # (auto) 0 10 ^3/uL (0-0.2); Basophils % (auto) 0.6 % (0.0-2.0); Eosinophils # (auto) 0.1 10 ^3/uL (0-0.8); Eosinophils % (auto) 1.4 % (0.0-7.0); Hematocrit 31.1 % (41.0-53.0); Hemoglobin 10.3 g/dL (13.5-17.5); Lymphocytes # (auto) 1.7 10 ^3/uL (0.4-5.4); Lymphocytes % (auto) 23.7 % (10.0-50.0); Mean Corpuscular Hemoglobin 26.9 pg (28.0-32.0); Mean Corpuscular Volume 81.6 fL (80.0-100.0); Monocytes # (auto) 0.8 10 ^3/uL (0-1.3); Monocytes % (auto) 11.5 % (0.0-12.0); Neutrophils # (auto) 4.6 10 ^3/uL (1.6-8.6); Neutrophils % (auto) 62.8 % (37.0-80.0); Red Blood Cells 3.82 10^6/uL (4.5-5.90); Red Cell Distribution Width 13.8 % (11.8-14.3); White Blood Cell 7.3 10^3/uL (4.4-10.8)
[2022-02-10 21:02] LABS: Albumin 3.3 g/dL (3.4-5.0); Calcium 8.5 mg/dL (8.5-10.1); Potassium 3.9 mmol/L (3.5-5.1)
[2022-02-10 21:05] LABS: BUN/Creatinine Ratio 17.1; Bilirubin, Total 0.4 mg/dL (0.2-1.0); Total Protein 6.6 g/dL (6.4-8.2)
== END | disposition home or self-care (01) ==
LOC: EDUNIT# 19:54 → ER 20:02 → EDBD 20:02
DX: L97.529 Non-pressure chronic ulcer of other part of left foot with unspecified severity (principal); L97.519 Non-pressure chronic ulcer of other part of right foot with unspecified severity; I10 Essential (primary) hypertension; E11.9 Type 2 diabetes mellitus without complications; F17.210 Nicotine dependence, cigarettes, uncomplicated; Z79.4 Long term (current) use of insulin; Z79.899 Other long term (current) drug therapy; Z20.822 Contact with and (suspected) exposure to COVID-19
CPT/HCPCS: 36415; 80053; 82962; 85025; 93005